=== PATIENT | female | born 1960 | race Caucasian/White ===

== ENCOUNTER 2019-09-03 11:26 | Outpatient (CLI) | payer OTHER, SELFPAY ==
--- NOTE | ~2019-09-03 | CT_ITS ---
EXAMINATION: CT chest wo con DATE: 09/03/2019 11:49 INDICATION: COPD, shortness of breath and cough TECHNIQUE: Computed tomography (CT) of the chest was performed without intravenous contrast. The dose -length product (DLP) was 67.40 mGy-cm. Automated exposure control and iterative reconstruction techn ique were employed. COMPARISON: None FINDINGS: There is mild emphysema. There is an approximately 2.0 x 1.5 cm groundglass nodule of the r ight upper lobe without definite solid component on image 47. Calcified pulmonary nodules and calcifi ed bilateral hilar and mediastinal lymph nodes are consistent with old granulomatous disease. There i s no pleural effusion or pneumothorax. No pathologically enlarged thoracic lymph nodes are identified . The heart size is normal. Punctate calcifications in an otherwise normal spleen likely represent he aled granulomatous disease. There is mild thoracic spondylosis. IMPRESSION: 1. 2 cm groundglass nodule of the right upper lobe which could be infectious or inflammatory however low-grade malignancy can have a similar appearance. Follow-up CT in three months is recommended. 2. Mild emphysema. Reviewed, dictated and finalized at location A. AL ASSISTANT TEACHER IMPRESSION: 1. 2 cm groundglass nodule of the right upper lobe which could be infectious or inflammatory however low-grade malignancy can have a similar appearance. Follo w-up CT in three months is recommended. 2. Mild emphysema.
== END 2019-09-03 11:27 | disposition home or self-care (01) ==
PROVIDERS: PCP Physician Assistant; Visit Provider Physician Assistant
DX: J44.9 Chronic obstructive pulmonary disease, unspecified (principal); R91.1 Solitary pulmonary nodule; J43.9 Emphysema, unspecified
CPT/HCPCS: 71250

== ENCOUNTER 2020-03-12 07:45 | Outpatient (CLI) | payer OTHER, SELFPAY ==
--- NOTE | ~2020-03-12 | CT_ITS ---
EXAMINATION:CT chest wo con DATE: 03/12/2020 08:06 INDICATION: Solitary pulmonary nodule. TECHNIQUE: Computed tomography (CT) of the chest was performed without intravenous contrast. Automate d exposure control and iterative reconstruction technique were employed. The dose-length product (DLP ) was 84.13 mGy-cm. COMPARISON: Chest CT 09/03/2019 FINDINGS: There is mild scarring at the lung apices. There is mild emphysema. There is a 4 mm nodule in right lower lobe without change. Calcified bilateral lung nodules and calcified hilar lymph nodes are consistent with old granulomatous disease. There is a 1.6 cm solid nodule in right upper lobe wit h 5 mm solid component without change. There are a few 2 mm nodules in the lungs. No pleural effusion . There is a 12 mm nodule in right thyroid lobe, likely not clinically significant. The heart size is normal. No pericardial effusion. Calcifications in the spleen are consistent with old granulomatous disease. There is severe mid thoracic spondylosis. There is mild chronic anterior wedging of T7 verte bral body. IMPRESSION: 1. Lung-RADS category 2: Benign appearance or behavior. Continue annual screening with noncontrast lo w-dose chest CT in 12 months. Reviewed, dictated and finalized at location B. IMPRESSION: 1. Lung-RADS category 2: Benign appearance or behavior. Continue annual screeni ng with noncontrast low-dose chest CT in 12 months.
== END 2020-03-12 07:46 | disposition home or self-care (01) ==
LOC: ANHIMG 07:51
PROVIDERS: PCP Physician Assistant; Visit Provider Nurse Practitioner
DX: R91.1 Solitary pulmonary nodule (principal)
CPT/HCPCS: 71250

== ENCOUNTER 2020-05-31 06:54 | Outpatient (NON) | payer OTHER, SELFPAY ==
[2020-05-31 19:54] LABS: SARS-CoV-2 RNA PCR Negative
== END 2020-05-31 06:55 ==
LOC: ANHCOVIDDT 07:13
PROVIDERS: PCP Physician Assistant; Visit Provider Physician Assistant
DX: R68.89 Other general symptoms and signs (principal); Z20.828 Contact with and (suspected) exposure to other viral communicable diseases
CPT/HCPCS: 87635; C9803; U0003

== ENCOUNTER 2020-09-26 11:17 | Outpatient (CLI) | payer OTHER, SELFPAY | END 2020-09-26 11:18 | disposition home or self-care (01) | LOC: ANHCOVIDVC 11:17 | PROVIDERS: PCP Physician Assistant | DX: Z23 Encounter for immunization (principal) | CPT/HCPCS: 0001A; 91300 ==

== ENCOUNTER 2020-10-17 11:16 | Outpatient (CLI) | payer OTHER, SELFPAY | END 2020-10-17 11:17 | disposition home or self-care (01) | LOC: ANHCOVIDVC 11:16 | PROVIDERS: PCP Physician Assistant | DX: Z23 Encounter for immunization (principal) | CPT/HCPCS: 0002A; 91300 ==

== ENCOUNTER 2021-04-11 09:58 | Outpatient (CLI) | payer OTHER, SELFPAY ==
--- NOTE | ~2021-04-11 | CT_ITS ---
EXAMINATION: CT diagnostic chest wo con EXAM DATE: 04/11/2021 10:44 INDICATION: Multiple lung nodules. TECHNIQUE: Spiral CT of the chest without contrast. Axial, coronal and sagittal images of the chest were reviewed. Coronal maximum intensity pixel images of chest reviewed. The dose-length product ( DLP) for this examination was 157.30 mGy-cm. The exposure was tailored according to patient size (au to mA exposure control), and iterative reconstruction (ASIR) was used as additional dose reduction te chnique. Comparison is made to prior examination from 04/12/2020. FINDINGS: There is moderate emphysema. Scattered regions of post infectious residua unchanged. No lafaro spicious lung nodules or opacities. There are no pleural or pericardial effusions. Tracheobronchia l tree is patent. There is no mediastinal, hilar or axillary lymphadenopathy. There is no pneumot horax. Narrow cardiac silhouette from hyperinflated lungs. No evidence of coronary arterial calci fication. Vague region of decreased density within the liver centrally, possible mass. There is mild to moderat e thoracic spondylosis without osteoblastic or osteolytic lesions identified. IMPRESSION: 1. Development of vague hypodensity within the liver centrally suspicious for mass; CT or MRI examin ation with contrast recommended. 2. Emphysema and hyperinflation. I discussed liver finding, recommendation with Shraddha in the office of Dr. Heidi Colunga, BUSINESS EXECUTIVE- at 04/11/2021 13:21 CDT. I provided my phone number for any questions regarding this report which is b eing faxed to their office. Reviewed, dictated and finalized at location B. IMPRESSION: 1. Development of vague hypodensity within the liver centrally suspicious for mass; CT or MRI examination with contrast recommended. 2. Emphysema and hyperinflation. I discussed liver finding, recommendation with Shraddha in the office of Dr. Heidi Colunga, BUSINESS EXECUTIVE-BC at 04/11/2021 13:21 CDT. I provided my phone number for an y questions regarding this report which is being faxed to their office.
== END 2021-04-11 09:59 | disposition home or self-care (01) ==
LOC: ANHIMG 10:03
PROVIDERS: PCP Physician Assistant; Visit Provider Nurse Practitioner
DX: R91.8 Other nonspecific abnormal finding of lung field (principal); J43.9 Emphysema, unspecified
CPT/HCPCS: 71250

== ENCOUNTER 2021-05-29 12:32 | Outpatient (CLI) | payer OTHER, SELFPAY ==
--- NOTE | ~2021-05-29 | CT_ITS ---
EXAMINATION: CT abdomen pelvis w con INDICATION: Liver mass TECHNIQUE: Computed tomographic images of the abdomen and pelvis were obtained after the administrati on of 100 cc of Omnipaque 350 intravenous contrast. The dose-length product (DLP) was 183.93 mGy-cm. Automated exposure control and iterative reconstruction technique were employed. COMPARISON: 04/11/2021, 03/12/2020, 09/03/2019 FINDINGS: Minimal dependent atelectasis is present in the lung bases. The heart size is normal. There is a 2.8 x 2.4 cm mass in liver segment Shaheed which appears to demonstrate interrupted peripheral nodu lar enhancement. The mass is not well seen on prior comparison examination from last year. Punctate c alcifications in an otherwise normal spleen likely represent healed granulomatous disease. The pancre as, gallbladder, and adrenal glands are normal. The kidneys are unremarkable. No pathologically enlar ged abdominal or pelvic lymph nodes are identified. There is calcified atherosclerosis of the aorta a nd many of the other arteries. There is mild lumbar spondylosis. IMPRESSION: 1. Probable hemangioma of the liver. Follow-up CT or MRI without and with contrast in six months is r ecommended. Reviewed, dictated and finalized at location B. OLE MANAGER IMPRESSION: 1. Probable hemangioma of the liver. Follow-up CT or MRI without and with contr ast in six months is recommended.
[2021-05-29 13:20] LABS: Estimated Glomerular Filt Rate > 60
== END 2021-05-29 12:33 | disposition home or self-care (01) ==
PROVIDERS: PCP Physician Assistant; Visit Provider Nurse Practitioner
DX: R16.0 Hepatomegaly, not elsewhere classified (principal)
CPT/HCPCS: 74177; Q9967

== ENCOUNTER 2021-10-16 10:40 | Emergency (ER) | payer OTHER, SELFPAY ==
--- NOTE | ~2021-10-16 | XR_ITS ---
XR lumbar spine 2-3V DATE: 10/16/2021 11:38 INDICATION: Low back pain, radiating to left leg. No injury. TECHNIQUE: AP, lateral, coned lateral lumbosacral views COMPARISON: 04/02/2016 lumbar spine FINDINGS: There is a transitional lumbosacral vertebra, which may be a source of chronic low back ryanne n. No fracture or bone destruction is evident. The included lower thoracic and lumbar pedicles appear in tact. Lumbar interspaces appear well preserved. There are mild degenerative spurring of the lower thoracic and lumbar spine. The sacroiliac joints are intact. IMPRESSION: Transitional lumbosacral vertebra Mild degenerative spurring of the lumbar spine Reviewed, dictated and finalized at location A.
[2021-10-16 10:52] VITALS: BP 146/75; PULSE 103; RESP 18; TEMP 37; O2SAT 99
--- NOTE | 2021-10-16 11:56 | ED.GENADULT ---
HPI - General Adult General Chief complaint: Urogenital-Female Stated complaint: Lower Back Pain Source: patient Mode of arrival: ambulatory Limitations: no limitations History of Present Illness HPI narrative: Patient presents for evaluation of low back pain for the past five days. She thinks she has a UTI. She states her urine is concentrated in appearance and has a foul odor. She has urinary frequency and is beginning to experience mild dysuria. She states she has experienced similar symptoms in the past with UTI. She denies any fever, chills, nausea, vomiting or abdominal pain. She states she also has additional low back pain with radiation into posterior aspect of the LLE. This pain has been present for many months. She cannot remember sustaining an injury and cannot identify any precipitating event. Pain is rated 8/10 in severity. She denies any saddle anesthesia. She denies paresthesias whatsoever. No bladder or bowel incontinence. She has tried ASA without much improvement in her symptoms. Related Data Home Medications Medication Instructions Recorded Confirmed duloxetine 60 mg PO DAILY 06/15/19 10/16/21 aripiprazole 2 mg PO DAILY 10/16/21 10/16/21 budesonide-formoterol [Symbicort] 2 inh INHALATION DAILY 10/16/21 10/16/21 Allergies Allergy/AdvReac Type Severity Reaction Status Date / Time No Known Allergies Allergy Verified 10/16/21 11:06 Review of Systems Review of Systems: CONSTITUTIONAL: Denies fever, chills, or sweats. EYES: Denies visual changes, redness, or discharge. ENT: Denies rhinorrhea, congestion, sore throat, or otalgia. CARDIOVASCULAR: Denies chest pain, palpitations, or edema. RESPIRATORY: Denies cough or dyspnea. GASTROINTESTINAL: Denies abdominal pain, nausea, vomiting, or diarrhea. GENITOURINARY: Reports urinary frequency, concentrated appearance, foul odor, and mild dysuria. SKIN: Denies rash or itching. MUSCULOSKELETAL: Reports low back pain. Denies joint pain, or myalgia. NEUROLOGIC: Denies headache, numbness, dizziness, or weakness. PSYCHIATRIC: Denies anxiety or depression. [facility] Past Medical History Medical History (Updated 10/16/21 @ 12:09 by Herson Hudson, MACHINE RIGGER, ) Depression Surgical History Surgical History No pertinent past surgical history Family History Family History Mother Family history non-contributory Social History Social History Smoking packs per day: 0.5 Smoking cigarettes per day: 10.0 Smoking status: Current every day smoker Substance use: never Living arrangements: alone Gender identity (if verbalized by the patient): Female Spiritual care concerns: No Exam Narrative: GENERAL: Well-appearing, well-nourished, and in no acute distress. HEAD: Normocephalic, atraumatic. EYES: PERRLA and EOMI. ENT: Nares clear, no rhinorrhea or epistaxis. Mucous membranes moist. Oropharynx without tonsillar hypertrophy exudate or other lesions. Bilateral TMs pearly islas nonbulging NECK: Supple. No adenopathy or masses. No carotid bruits or JVD CHEST: Clear to auscultation. No respiratory distress. No wheezes rales or rhonchi HEART: Regular rate and rhythm. No murmur heard. Normal peripheral pulses. ABDOMEN: Soft, nontender, nondistended, normal active bowel sounds. BACK: Mild tenderness noted diffusely in lower back without significant midline bony spinal tenderness EXTREMITIES: Normal range of motion. No edema. SKIN: Warm, dry, no rash. NEURO: No focal deficits. Alert and oriented x3. PSYCH: Normal mood and affect. Course Course Emergency Course: This is a 61 yr old female here today with reports of low back pain. Her urine did not have evidence of infectious criteria. Her x ray of lumbar spine revealed transitional lumbosacral vertebra and DDD. Exam is consis
== END 2021-10-16 12:12 | disposition home or self-care (01) ==
PROVIDERS: Emergency Provider Nurse Practitioner; PCP Physician Assistant
DX: M54.32 Sciatica, left side (principal); M51.36 Other intervertebral disc degeneration, lumbar region; F17.210 Nicotine dependence, cigarettes, uncomplicated
CPT/HCPCS: 72100; 81003; 99213; G0463

== ENCOUNTER 2022-06-16 09:38 | Inpatient (IN) | payer OTHER, SELFPAY ==
[2022-06-16] VITALS (15 sets, daily range): BP systolic 110–166; BP diastolic 74–164; PULSE 97–115; RESP 12–32; TEMP 36.4–36.6; O2SAT 94–100; BMI 11.9
--- NOTE | ~2022-06-16 | XR_ITS ---
XR chest 2V 06/16/2022 10:42 Indication: Shortness of breath. History of COPD. Procedure: 2 view chest Comparison: 11/03/2017 Findings: Heart size normal. There are bilateral calcified granulomas in the lungs. No focal air spac e disease, pulmonary edema, pleural effusion or suspected pneumothorax. The lungs are hyperinflated w hich is consistent with, but not diagnostic of chronic obstructive pulmonary disease. Impression: 1: No acute cardiopulmonary disease. Reviewed, dictated and finalized at location A. INSTRUMENT REPAIRER Impression: 1: No acute cardiopulmonary disease.
--- NOTE | 2022-06-16 09:43 | ECG_ITS ---
Measurements Intervals [place] Rate: 110 P: 81 OR: 144 QRS: 36 QRSD: 94 T: 77 QT: 328 QTc: 444 Interpretive Statements SINUS TACHYCARDIA RIGHT ATRIAL ENLARGEMENT POSSIBLE LEFT ATRIAL ENLARGEMENT CONSIDER ANTERIOR INFARCT, AGE INDETERMINATE DELAYED PRECORDIAL R/S TRANSITION BASELINE ARTIFACT- I, II, III, AVR, AVL, AVF, V1-V6 ABNORMAL ECG NO PREVIOUS ECG AVAILABLE FOR COMPARISON Electronically Signed On 06-16-2022 10:57:37 DRY KILN LOADER by Herve Mae D.O.
--- NOTE | 2022-06-16 09:53 | ED.SOB ---
HPI - SOB/Dyspnea General Chief Complaint: Shortness of Breath/Dyspnea <Heidi Leavitt PA-C - Last Filed: 06/16/22 14:28> Stated Complaint: sob, copd <BISMARK Rodriguez Last Filed: 06/16/22 14:28> Time Seen by Provider: 06/16/22 09:44 <BISMARK Rodriguez Last Filed: 06/16/22 14:28> Source: patient <BISMARK Rodriguez Last Filed: 06/16/22 14:28> Mode of arrival: ambulatory <BISMARK Rodriguez Last Filed: 06/16/22 14:28> Limitations: no limitations <BISMARK Rodriguez Last Filed: 06/16/22 14:28> History of Present Illness HPI Narrative: This is a 61 year old female that presents to the ER for shortness of breath ongoing over the last couple of days. Associated with congestion, sore throat and nonproductive cough. Reports she is currently out of her Albuterol inhaler. Has history of COPD. She is currently a smoker, although she has been too short of breath to smoke the last couple of days. Reports sharp chest pain. Denies fever. <BISMARK Rodriguez Last Filed: 06/16/22 14:28> Related Data Home Medications: Home Medications Medication Instructions Recorded Confirmed duloxetine 60 mg capsule,delayed 60 mg PO BID 06/15/19 06/16/22 release budesonide-formoterol HFA 160 2 inh inhalation DAILY 10/16/21 06/16/22 mcg-4.5 mcg/actuation aerosol inhaler (Symbicort) albuterol sulfate 90 mcg/actuation 2 puff inhalation BID 06/16/22 06/16/22 aerosol inhaler <BISMARK Rodriguez Last Filed: 06/16/22 14:28> Allergies/Adverse Reactions: Allergies Allergy/AdvReac Type Severity Reaction Status Date / Time No Known Allergies Allergy Verified 10/16/21 11:06 <BISMARK Rodriguez Last Filed: 06/16/22 14:28> Review of Systems Review of Systems: CONSTITUTIONAL: Denies fever ENT: Reports congestion, sore throat CARDIOVASCULAR: Reports chest pain. Denies edema. RESPIRATORY: Reports cough and dyspnea. <Heidi Leavitt PA-C - Last Filed: 06/16/22 14:28> All systems reviewed & are unremarkable except as noted in HPI and below <Heidi Leavitt PA-C - Last Filed: 06/16/22 14:28> [facility] Past Medical History Medical History: Medical History (Updated 06/16/22 @ 14:19 by Heidi Leavitt PA-C) Depression History of COPD <Heidi Leavitt PA-C - Last Filed: 06/16/22 14:28> Surgical History Surgical History: Surgical History No pertinent past surgical history <Heidi Leavitt PA-C - Last Filed: 06/16/22 14:28> Family History Family History: Family History (Updated 06/16/22 @ 15:34 by TEMO Castellon) Mother Family history non-contributory Father Smoker Bone cancer <Heidi Leavitt PA-C - Last Filed: 06/16/22 14:28> Social History Social History: Social History Smoking packs per day: 0.5 Smoking cigarettes per day: 10.0 Years smoked: 40 Smoking pack-years: 20.00 Smoking status: Current every day smoker Substance use: never Lack of Transportation: No Lack of Food: Never True Current Housing: I Have Housing Concerned About Future Housing: No Difficulty Paying Gas/Electric Bills: No Difficulty Paying for Meds: No Currently Unemployed: No Education: High School Diploma/GED Difficulty w/ Childcare or Family Care: No Gender identity (if verbalized by the patient): Female Spiritual care concerns: No <Heidi Leavitt PA-C - Last Filed: 06/16/22 14:28> Exam Narrative: GENERAL: Well-appearing, thin, and in mild respiratory distress. HEAD: Normocephalic, atraumatic. EYES: EOMI. ENT: Nares clear, no rhinorrhea or epistaxis. Mucous membranes moist. Oropharynx without tonsillar hypertrophy, she does have exudates, no other lesions. Bilateral TMs pearly islas non-bulging NECK: Supple. No adenopathy or masses. CHEST: Tachypneic, decreased br
[2022-06-16 10:00] LABS: Basophils Absolute Auto 0.1 K/mm3 (0.0-0.1); Basophils Percent Auto 0.8 % (0.2-1.2); Eosinophils Absolute Auto 0.1 K/mm3 (0-0.3); Eosinophils Percent Auto 2.1 % (0-4.4); Hematocrit 44.6 % (37.0-47.0); Hemoglobin 15.1 g/dL (12.0-15.0); Immature Granulocyte Absolute 0.02 K/mm3 (0.00-0.031); Immature Granulocyte Percent A 0.3 % (0-0.5); Lymphocytes Absolute Auto 1.59 K/mm3 (0.9-3.2); Mean Corpuscular HGB Conc 33.9 g/dl (32-36); Mean Corpuscular Hemoglobin 31.7 pg (26-34); Mean Corpuscular Volume 93.5 fl (80-100); Mean Platelet Volume 9.2 fl (7.4-10.4); Monocytes Absolute Auto 0.8 K/mm3 (0.1-0.6); Monocytes Percent Auto 12.4 % (2.6-8.5); Neutrophils Percent Auto 60.4 % (45.5-73.1); Platelet Count Result 287 k/mm3 (150-375); Red Blood Count 4.77 M/mm3 (4.2-5.4); Red Cell Distribution Width 12.5 % (11.5-14.5); White Blood Count 6.6 K/mm3 (4.5-10.0)
[2022-06-16] MEDS: ALBUTEROL SULFATE NEB 2.5 MG/3 ML INH 5 MG INHALATION (10:08)
[2022-06-16] MEDS: IPRATROPIUM BR 0.02% INH SOLN 0.5 MG/2.5 ML VIAL INHALATION (10:08)
[2022-06-16] MEDS: methylPREDNISolone SOD SUCC 125 MG VIAL IV PUSH (10:11)
[2022-06-16] MEDS: SODIUM CHLORIDE 0.9% IV 500 ML 999 ML IV CONT (10:11)
[2022-06-16 10:27] LABS: Alveolar/Arterial O2 Gradient 21.7 mmHg; Base Excess ABG -2.4 mEq/l (+/-2.0); Carboxyhemoglobin 0.8 % THb (0-2.0); Fractional Inspired Oxygen 21 %; HCO3 ABG 24.3 mEq/l (22.0-26.0); Methemoglobin ABG 0.2 %THb (0-1.5); Oxygen Saturation ABG 92.4 % (95.0-100.0); PCO2 ABG 48.9 mmHg (35.0-45.0); PO2 ABG 69.5 mmHg (80.0-100.0); PO2 FiO2 Ratio Arterial Blood 3.31 %; Total Hemoglobin 14.7 g/dL (12.0-18.0); pH ABG 7.314 (7.350-7.450)
[2022-06-16 10:28] LABS: Device ROOM AIR; Modified Allen's Test Pass; Site Drawn RIGHT BRACHIAL
[2022-06-16] MEDS: ALBUTEROL SULFATE NEB 2.5 MG/3 ML INH 15 MG INHALATION (10:59)
[2022-06-16] MEDS: IPRATROPIUM BR 0.02% INH SOLN 0.5 MG/2.5 ML VIAL 1.5 MG INHALATION (10:59)
[2022-06-16 11:19] LABS: Influenza A QL RT-PCR Positive (Negative); Influenza B QL RT-PCR Negative (Negative); RSV RNA, RT-PCR Negative (Negative); SARS-CoV-2 RNA PCR Negative
[2022-06-16 11:43] LABS: INR 0.9
[2022-06-16 11:44] LABS: Partial Thromboplastin Time 35.5 SECONDS (22.3-36.8)
[2022-06-16 11:45] LABS: Strep Group A RT-PCR Negative (Negative)
[2022-06-16] MEDS: LORazepam INJ (*CRX) 2 MG/ML VIAL 0.5 MG IV PUSH (11:46)
[2022-06-16 12:04] LABS: Monoscreen Negative (Negative); Negative Monotest Control Negative (Negative); Positive Monotest Control Positive (Positive)
[2022-06-16 13:00] LABS: Alanine Aminotransferase 38 U/L (6-35); Albumin Level 4.8 g/dL (3.5-5.1); Alkaline Phosphatase 72 U/L (38-126); Anion Gap 14 mmol/L (8-16); Aspartate Amino Transferase 71 U/L (14-36); Bilirubin,Total 0.5 mg/dL (0.2-1.3); Blood Urea Nitrogen 27 mg/dL (7-17); Calcium 8.8 mg/dL (8.4-10.2); Carbon Dioxide 24 mmol/L (22-30); Chloride 102 mmol/L (98-107); Estimated Glomerular Filt Rate > 60; Glucose 126 mg/dL (65-110); Potassium 4.3 mmol/L (3.4-5.0); Sodium 140 mmol/L (137-145)
[2022-06-16 13:12] LABS: Troponin I < 0.012 ng/mL (0.000-0.034)
[2022-06-16] MEDS: OSELTAMIVIR PHOSPHATE 75 MG CAPSULE PO ×2 (13:57→20:14)
--- NOTE | 2022-06-16 15:15 | ADMGEN ---
This patient, Nasrin Mercedes, was admitted to IMU Room 213-01 at 1510. Patient/family oriented to hospital policies and general routines including ID bracelet, bed and alarms, visiting hours, pain management, procedures, bathroom and other care routines, personal items, smoking policy, room service/diet, and visiting hours. Information on how to activate the Rapid Response Team has been discussed. Patient/Family are encouraged to report perceived risks to care and to ask questions if they do not understand what they are told or what they should do.
--- NOTE | 2022-06-16 19:44 | PM.IMHP ---
H&P: HPI History of Present Illness Date/Time: 06/16/22 19:44 Chief Complaint: Shortness of breath Narrative: This is a 61-year-old female patient who has a history of COPD. She came to the emergency room with complaints of shortness of breath for the last couple days. She said it started out as nasal congestion and a sore throat. She also had a nonproductive cough. She states that she uses her inhalers at home but then she ran out of her albuterol. She is currently smoking but has not had a cigarette since this past . The patient was using accessory muscles in the emergency room and she was placed on a BiPAP machine. When I assessed her in IMU she had taken the BiPAP off and was on room air and was using accessory muscles again. She then was placed on oxygen at 2 L per nasal cannula and continuous pulse ox. The patient was found to be positive for influenza A. The patient was started on Tamiflu and given Solu-Medrol and nebulizer treatments in the emergency room. Her chest x-ray was read as no acute cardiopulmonary disease. The patient initially was admitted to observation status and then changed to inpatient status. Date of service is 06/16/2022. Review of Systems Review of Systems: see hpi All systems reviewed & are unremarkable except as noted in HPI and below Constitutional: Constitutional: Reports as per HPI and Reports no additional constitutional complaints Eyes: Eyes: Reports as per HPI and Reports no additional eye complaints ENT: Reports system reviewed and no additional complaints, except as documented and Reports Normal hearing present Cardiovascular: Cardiovascular: Reports no additional cardiovascular complaints Respiratory: Respiratory: Reports no additional respiratory complaints and Reports no additional respiratory complaints Gastrointestinal: Gastrointestinal: Reports as per HPI and Reports no additional gastrointestinal complaints Musculoskeletal: Musculoskeletal: Reports no additional musculoskeletal complaints Integumentary/Breasts: Skin/Breast: Reports system reviewed and no additional complaints, except as docu and Reports as per HPI Neurologic: Reports system reviewed and no additional complaints, except as documented, Reports as per HPI and Reports Normal hearing present Psychiatric: Psychiatric: Reports no additional psychiatric complaints and Reports as per HPI Endocrine: Endocrine: Reports no additional endocrine complaints Hematologic/Lymphatic: Hematologic/Lymphatic: Reports no additional hematologic/lymphatic complaints Allergic/Immunologic: Allergic/Immunologic: Reports no additional allergic/immunologic complaints [facility] Past Medical History Medical History (Updated 06/16/22 @ 21:49 by Maryann Shah NP) Depression History of COPD Tobacco abuse Surgical History Surgical History No pertinent past surgical history Family History Family History Mother Family history non-contributory Father Smoker Bone cancer Social History Social History (Updated 06/16/22 @ 21:34 by Maryann Shah NP) Social History: The patient had been smoking at least 10 cigarettes a day. She stated she has not had a cigarette since this past . She has 2 children. 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 The patient is but still remains friends with her ex-. she denies any alcohol marijuana or illicit drugs. She has no durable power compliance attorney for healthcare. Code status full code Smoking packs per day: 0.5 Smoking cigarettes per day: 10.0 Years smoked: 40 Smoking pack-years: 20.00 Smoking status: Current every day smoker Substance use: never Lack of Transportation: No Lack of Food: Never True Current Housing: I Have Housing Concerned About Future Housing: No Difficulty Paying Gas/Electric [employer]
[2022-06-16] MEDS: methylPREDNISolone SOD SUCC 125 MG VIAL 60 MG IV PUSH (23:12)
[2022-06-16] MEDS: DULoxetine HCL 60 MG CAPSULE.DR PO (23:12)
[2022-06-17] VITALS (14 sets, daily range): BP systolic 127–134; BP diastolic 64–89; PULSE 82–109; RESP 18–22; TEMP 36.5–36.8; O2SAT 93–100; BMI 15.7
[2022-06-17] MEDS: OSELTAMIVIR PHOSPHATE 30 MG CAPSULE PO ×3 (00:11→21:33)
[2022-06-17] MEDS: ALBUTEROL SULFATE NEB 2.5 MG/3 ML INH INHALATION ×4 (01:35→20:47)
[2022-06-17] MEDS: IPRATROPIUM BR 0.02% INH SOLN 0.5 MG/2.5 ML VIAL INHALATION ×4 (01:35→20:47)
[2022-06-17 04:54] LABS: Basophils Percent Auto 0.2 % (0.2-1.2); Hematocrit 40.4 % (37.0-47.0); Hemoglobin 13.6 g/dL (12.0-15.0); Immature Granulocyte Absolute 0.02 K/mm3 (0.00-0.031); Immature Granulocyte Percent A 0.4 % (0-0.5); Lymphocytes Percent Auto 10.1 % (18.3-44.2); Mean Corpuscular HGB Conc 33.7 g/dl (32-36); Mean Corpuscular Hemoglobin 31.6 pg (26-34); Mean Corpuscular Volume 93.7 fl (80-100); Mean Platelet Volume 8.9 fl (7.4-10.4); Monocytes Absolute Auto 0.2 K/mm3 (0.1-0.6); Monocytes Percent Auto 4.9 % (2.6-8.5); Neutrophils Absolute Auto 4.2 K/mm3 (1.3-6.7); Neutrophils Percent Auto 84.4 % (45.5-73.1); Platelet Count Result 273 k/mm3 (150-375); Red Blood Count 4.31 M/mm3 (4.2-5.4); Red Cell Distribution Width 12.4 % (11.5-14.5); White Blood Count 4.9 K/mm3 (4.5-10.0)
[2022-06-17 05:11] LABS: Lactic Acid Reflex 0.8 mmol/L (0.7-2.0)
[2022-06-17 05:14] LABS: Alanine Aminotransferase 41 U/L (6-35); Albumin Level 4.8 g/dL (3.5-5.1); Alkaline Phosphatase 74 U/L (38-126); Anion Gap 10 mmol/L (8-16); Aspartate Amino Transferase 65 U/L (14-36); Bilirubin,Total 0.3 mg/dL (0.2-1.3); Blood Urea Nitrogen 31 mg/dL (7-17); Carbon Dioxide 28 mmol/L (22-30); Chloride 101 mmol/L (98-107); Estimated CRCL calculation 67 ml/min; Estimated Glomerular Filt Rate > 60; Glucose 142 mg/dL (65-110); Magnesium 2.1 mg/dL (1.6-2.3); Potassium 4.7 mmol/L (3.4-5.0); Sodium 139 mmol/L (137-145)
[2022-06-17] MEDS: methylPREDNISolone SOD SUCC 125 MG VIAL 60 MG IV PUSH (05:22)
[2022-06-17] MEDS: ENOXAPARIN 40 MG/0.4 ML SYRINGE SUB-Q (08:48)
[2022-06-17] MEDS: DULoxetine HCL 60 MG CAPSULE.DR PO ×2 (08:48→21:33)
[2022-06-17] MEDS: NICOTINE (*PBKC) 14 MG PATCH 1 PATCH TRANSDERM (08:49)
[2022-06-17] MEDS: FLUTICASONE/SALMETEROL 115-21 MCG INHALER 1 PUFF 2 PUFF INHALATION ×2 (09:01→20:47)
--- NOTE | 2022-06-17 11:41 | PM.IMPN ---
Progress Note: A&P Assessment and Plan (1) Influenza A: Code(s): J10.1 - Influenza due to other identified influenza virus with other respiratory manifestations Status: Acute Assessment and Plan: -continue with Tamiflu. (2) COPD (chronic obstructive pulmonary disease): Code(s): J44.9 - Chronic obstructive pulmonary disease, unspecified Status: Acute Assessment and Plan: -continue with Symbicort -continue with DuoNebs - DC Solu-Medrol. Start on oral prednisone O2 as required to keep O2 saturations above 90% (3) Anxiety: Code(s): F41.9 - Anxiety disorder, unspecified Status: Acute Assessment and Plan: -continue with duloxetine (4) Depression: Code(s): F32.A - Depression, unspecified Status: Acute Assessment and Plan: -continue duloxetine (5) Tobacco abuse: Code(s): Z72.0 - Tobacco use Status: Acute Assessment and Plan: - counseled on smoking cessation for approximately 5 minutes. -continue with nicotine patch Subjective Date/time seen: 06/17/22 11:41 breathing little better. Still has wheezing Review of Systems Review of Systems: see hpi All systems reviewed & are unremarkable except as noted in HPI and below Constitutional: Constitutional: Reports as per HPI and Reports no additional constitutional complaints Eyes: Eyes: Reports as per HPI and Reports no additional eye complaints ENT: Reports system reviewed and no additional complaints, except as documented and Reports Normal hearing present Cardiovascular: Cardiovascular: Reports no additional cardiovascular complaints Respiratory: Respiratory: Reports no additional respiratory complaints and Reports no additional respiratory complaints Gastrointestinal: Gastrointestinal: Reports as per HPI and Reports no additional gastrointestinal complaints Musculoskeletal: Musculoskeletal: Reports no additional musculoskeletal complaints Integumentary/Breasts: Skin/Breast: Reports system reviewed and no additional complaints, except as docu and Reports as per HPI Neurologic: Reports system reviewed and no additional complaints, except as documented, Reports as per HPI and Reports Normal hearing present Psychiatric: Psychiatric: Reports no additional psychiatric complaints and Reports as per HPI Endocrine: Endocrine: Reports no additional endocrine complaints Hematologic/Lymphatic: Hematologic/Lymphatic: Reports no additional hematologic/lymphatic complaints Allergic/Immunologic: Allergic/Immunologic: Reports no additional allergic/immunologic complaints Exam Const: General: cooperative, comfortable, well developed, alert, awake and Physically active Nutritional Appearance: average body habitus, well nourished and thin Orientation/consciousness: oriented to person, oriented to place, oriented to time and patient oriented x3 Limitations: no limitations HENMT: Head: normal to inspection, No palpable skull fracture present, normocephalic and atraumatic Ears: hearing grossly normal bilaterally and external ears normal Face/Nose/Sinus: Normal external nose present and Normal nares present Eyes: General: appearance normal, both eyes and all related structures Alignment and Position: alignment normal Periorbital: periorbital findings normal Eyelids: eyelids normal Sclera: sclerae normal Pupils: Equal, round and reactive pupils present EOM: EOMs intact bilaterally Neck: Neck: normal visual inspection, full ROM, no lymphadenopathy, trachea midline and supple Chest: Chest palpation & inspection: normal inspection of the chest Resp: Effort & Inspection: normal respiratory effort Auscultation: wheezes and diminished lung sounds Cardio: Palpation: normal PMI Rate: regular rate Rhythm: regular rhythm Heart sounds: S1 normal heart sound present and S2 normal heart sound present Peripheral pulses: Peripheral pulses 2+ throughout GI: Inspection: normal to inspection
--- NOTE | 2022-06-17 22:40 | PC.NURSE ---
This patient, Nasrin Mercedes, was transferred to [ 243] on 06/17/22 at 2240. Personal belongings sent with patient. Report given to [Latonya sow ]. Appropriate documentation sent with patient.
[2022-06-18] VITALS (12 sets, daily range): BP systolic 115–127; BP diastolic 69–85; PULSE 62–108; RESP 16–20; TEMP 36.3–37.1; O2SAT 94–97
[2022-06-18] MEDS: ALBUTEROL SULFATE NEB 2.5 MG/3 ML INH INHALATION ×4 (01:41→21:30)
[2022-06-18] MEDS: IPRATROPIUM BR 0.02% INH SOLN 0.5 MG/2.5 ML VIAL INHALATION ×4 (01:42→21:30)
[2022-06-18] MEDS: FLUTICASONE/SALMETEROL 115-21 MCG INHALER 1 PUFF 2 PUFF INHALATION (08:49)
[2022-06-18] MEDS: predniSONE 20 MG TABLET 40 MG PO (09:44)
[2022-06-18] MEDS: ENOXAPARIN 40 MG/0.4 ML SYRINGE SUB-Q (09:45)
[2022-06-18] MEDS: OSELTAMIVIR PHOSPHATE 30 MG CAPSULE PO ×2 (09:45→20:55)
[2022-06-18] MEDS: DULoxetine HCL 60 MG CAPSULE.DR PO ×2 (09:45→20:55)
--- NOTE | 2022-06-18 11:58 | PM.IMPN ---
Progress Note: A&P Assessment and Plan (1) Influenza A: Code(s): J10.1 - Influenza due to other identified influenza virus with other respiratory manifestations Status: Acute Assessment and Plan: -continue with Tamiflu. (2) COPD (chronic obstructive pulmonary disease): Code(s): J44.9 - Chronic obstructive pulmonary disease, unspecified Status: Acute Assessment and Plan: -continue with Symbicort -continue with DuoNebs - DC Solu-Medrol. Start on oral prednisone O2 as required to keep O2 saturations above 90% (3) Anxiety: Code(s): F41.9 - Anxiety disorder, unspecified Status: Acute Assessment and Plan: -continue with duloxetine (4) Depression: Code(s): F32.A - Depression, unspecified Status: Acute Assessment and Plan: -continue duloxetine (5) Tobacco abuse: Code(s): Z72.0 - Tobacco use Status: Acute Assessment and Plan: - counseled on smoking cessation for approximately 5 minutes. -continue with nicotine patch Subjective Date/time seen: 06/18/22 11:58 No new complaints Exam Const: General: cooperative, healthy appearing, comfortable, no acute distress, well developed, alert, awake, Physically active, average body habitus, well nourished and thin Nutritional Appearance: average body habitus, well nourished and thin Orientation/consciousness: oriented to person, oriented to place, oriented to time and patient oriented x3 Limitations: no limitations HENMT: Head: normal to inspection, No palpable skull fracture present, normocephalic and atraumatic Ears: hearing grossly normal bilaterally and external ears normal Face/Nose/Sinus: Normal external nose present and Normal nares present Eyes: General: appearance normal, both eyes and all related structures Alignment and Position: alignment normal Periorbital: periorbital findings normal Eyelids: eyelids normal Sclera: sclerae normal Pupils: Equal, round and reactive pupils present EOM: EOMs intact bilaterally Neck: Neck: normal visual inspection, full ROM, no lymphadenopathy, trachea midline and supple Chest: Chest palpation & inspection: normal inspection of the chest Resp: Effort & Inspection: normal respiratory effort Auscultation: wheezes and diminished lung sounds Cardio: Palpation: normal PMI Rate: regular rate Rhythm: regular rhythm Heart sounds: S1 normal heart sound present and S2 normal heart sound present Peripheral pulses: Peripheral pulses 2+ throughout GI: Inspection: normal to inspection Auscultation: normal bowel sounds Rectal Exam: deferred Back/Spine/Pelvis: Cervical Spine: cervical ROM normal Skin: General skin exam: normal color Lesions: no lesions Rashes: no rashes Trauma: no lacerations or abrasions Wounds: no wounds Hair: normal Nails: normal Neuro: General: oriented to person, oriented to place, oriented to time and patient oriented x3 Cranial nerves: Yes Equal, round and reactive pupils present and Yes Normal hearing present Cognition (Neuro): normal cognition Speech: normal speech Motor exam (neuro): 5/5 motor strength present throughout Sensory Exam: normal sensation Extrem: General: normal to inspection Right upper extremity: normal to inspection and shoulder/upper arm Left upper extremity: normal to inspection and shoulder/upper arm Right lower extremity: normal to inspection Left lower extremity: normal to inspection Psych: Appearance: grossly normal Mental Status: mental status grossly normal Speech and movement: Normal speech and movement present Affect: normal affect Attitude: cooperative Thought process: Normal thought process present Insight: Fair insight present (Psych) Judgement: Fair judgement present (Psych) Objective Data Vital Signs Vital Signs: Vital Signs - 24 hr 06/17/22 12:30 06/17/22 15:55 06/17/22 16:04 Temperature Pulse Rate 100 89 Respiratory Rate 22 H 22 H Blood Pressure Puls
--- NOTE | 2022-06-18 14:02 | PC.NURSE ---
On 06/18/22, the student, [Karen Cespedes], provided care and completed [facility] documentation on this patient. I have reviewed the student's documentation and agree with the findings.
[2022-06-19] VITALS (10 sets, daily range): BP systolic 109–131; BP diastolic 51–79; PULSE 75–118; RESP 16–20; TEMP 36.6–37.1; O2SAT 94–97
[2022-06-19] MEDS: IPRATROPIUM BR 0.02% INH SOLN 0.5 MG/2.5 ML VIAL INHALATION ×2 (01:57→07:44)
[2022-06-19] MEDS: ALBUTEROL SULFATE NEB 2.5 MG/3 ML INH INHALATION ×2 (01:57→07:44)
--- NOTE | 2022-06-19 02:01 | PCRCNOTE ---
Window of time for administration has passed. See next scheduled administration.
[2022-06-19] MEDS: DULoxetine HCL 60 MG CAPSULE.DR PO (08:13)
[2022-06-19] MEDS: OSELTAMIVIR PHOSPHATE 30 MG CAPSULE PO (08:13)
[2022-06-19] MEDS: predniSONE 20 MG TABLET 40 MG PO (08:13)
[2022-06-19] MEDS: ENOXAPARIN 40 MG/0.4 ML SYRINGE SUB-Q (08:13)
--- NOTE | 2022-06-19 10:58 | PM.DS ---
DS: Admitting Diagnosis Discharge Date June 19, 2022 Admitting Diagnosis COPD and influenza DS: Discharge Diagnosis Discharge Diagnosis (1) Influenza A: Code(s): J10.1 - Influenza due to other identified influenza virus with other respiratory manifestations Status: Acute Assessment and Plan: -continue with Tamiflu. (2) COPD (chronic obstructive pulmonary disease): Code(s): J44.9 - Chronic obstructive pulmonary disease, unspecified Status: Acute Assessment and Plan: -continue with Symbicort -continue with DuoNebs - DC Solu-Medrol. Start on oral prednisone O2 as required to keep O2 saturations above 90% (3) Anxiety: Code(s): F41.9 - Anxiety disorder, unspecified Status: Acute Assessment and Plan: -continue with duloxetine (4) Depression: Code(s): F32.A - Depression, unspecified Status: Acute Assessment and Plan: -continue duloxetine (5) Tobacco abuse: Code(s): Z72.0 - Tobacco use Status: Acute Assessment and Plan: - counseled on smoking cessation for approximately 5 minutes. -continue with nicotine patch DS: Summary Hospital Course Hospital Course: patient is 61-year-old smoking female came in with some shortness of breath. She was found to have influenza. No pneumonia noted on chest x-ray. She did have some wheezing and was admitted for COPD exacerbation secondary to viral illness. She has not required any oxygen. We will have her evaluated for home O2. She has been in the hospital for 3 days is able to ambulate she does little short of breath. She feels comfortable going home. Will continue prednisone and also continue Tamiflu. Time Spent with Patient Time attestation: Total time spent providing and/or coordinating discharge services: Exam Const: General: cooperative, healthy appearing, comfortable, no acute distress, well developed, alert, awake, Physically active, average body habitus, well nourished and thin Nutritional Appearance: average body habitus, well nourished and thin Orientation/consciousness: oriented to person, oriented to place, oriented to time and patient oriented x3 Limitations: no limitations HENMT: Head: normal to inspection, No palpable skull fracture present, normocephalic and atraumatic Ears: hearing grossly normal bilaterally and external ears normal Face/Nose/Sinus: Normal external nose present and Normal nares present Eyes: General: appearance normal, both eyes and all related structures Alignment and Position: alignment normal Periorbital: periorbital findings normal Eyelids: eyelids normal Sclera: sclerae normal Pupils: Equal, round and reactive pupils present EOM: EOMs intact bilaterally Neck: Neck: normal visual inspection, full ROM, no lymphadenopathy, trachea midline and supple Chest: Chest palpation & inspection: normal inspection of the chest Resp: Effort & Inspection: normal respiratory effort Auscultation: wheezes and diminished lung sounds Cardio: Palpation: normal PMI Rate: regular rate Rhythm: regular rhythm Heart sounds: S1 normal heart sound present and S2 normal heart sound present Peripheral pulses: Peripheral pulses 2+ throughout GI: Inspection: normal to inspection Auscultation: normal bowel sounds Rectal Exam: deferred Back/Spine/Pelvis: Cervical Spine: cervical ROM normal Skin: General skin exam: normal color Lesions: no lesions Rashes: no rashes Trauma: no lacerations or abrasions Wounds: no wounds Hair: normal Nails: normal Neuro: General: oriented to person, oriented to place, oriented to time and patient oriented x3 Cranial nerves: Yes Equal, round and reactive pupils present and Yes Normal hearing present Cognition (Neuro): normal cognition Speech: normal speech Motor exam (neuro): 5/5 motor strength present throughout Sensory Exam: normal sensation Extrem: General: normal to inspection Right upper extremity: normal to inspect
--- NOTE | 2022-06-19 11:52 | HOMEO2EVAL ---
Evaluation was performed at [facility] Home Oxygen Evaluation RC: Home Oxygen (O2) Evaluation Start: 06/19/22 10:57 Freq: ONCE Status: Active Protocol: RPE Activity Type Activity Date Activity User E-sign Co-sign Detail Recorded Client Recorded Date Recorded By Document 06/19/22 11:35 JESSICA [id number] 06/19/22 11:52 JESSICA Document 06/19/22 11:40 JESSICA [id number] 06/19/22 11:52 JESSICA Document 06/19/22 11:45 JESSICA [id number] 06/19/22 11:52 JESSICA 06/19/22 06/19/22 06/19/22 11:35 11:40 11:45 Home O2 Evaluation [Oxygen] -Test Phase Resting Exercise Resting -Oxygen Delivery Room Air Room Air Room Air [Pulse Oximetry] -Pulse Oximetry (90-100 %) 96 94 95 [Pulse Rate] -Pulse Rate (60-100 beats/min) 96 118 H 102 H [Comments] -Home Oxygen Evaluation Comments no home o2 needed [Charges] -Treatment Charges O2 Evaluation - Inpatient
--- NOTE | 2022-06-19 11:52 | PCRCNOTE ---
Home o2 eval done. no home o2 needed.
== END 2022-06-19 13:00 | disposition home or self-care (01) | DRG 194 ==
LOC: ANHED 14:19 → ANHIMU 14:25 → ANH2MED 06-17 22:39
PROVIDERS: Nurse Practitioner; Physician Assistant; Admitting Provider Family Medicine; PCP Physician Assistant; Visit Provider Chiropractor
DX: J10.1 Influenza due to other identified influenza virus with other respiratory manifestations (principal); J44.1 Chronic obstructive pulmonary disease with (acute) exacerbation; F17.210 Nicotine dependence, cigarettes, uncomplicated; F32.A Depression, unspecified; F41.9 Anxiety disorder, unspecified; Z20.822 Contact with and (suspected) exposure to COVID-19
CPT/HCPCS: 36415; 36600; 71046; 80053; 82375; 82805; 83050; 83605; 83735; 84484; 85025; 85610; 85730; 86308; 87637; 87651; 93005; 94002; 94618; 94640; 96374; 96375; 99285; A9270; J1650; J2060; J2930; J7040; J7512

== ENCOUNTER 2022-06-24 10:01 | Emergency (ER) | payer OTHER, SELFPAY ==
--- NOTE | ~2022-06-24 | XR_ITS ---
XR chest 2V 06/24/2022 10:26 Indication: Cough with shortness of breath Procedure: 2 view chest Comparison: 2 view chest Findings: There is emphysema. There is scarring in the right upper lung and left lower lung. There is bilateral calcified granulomas. No acute focal pneumonia, edema or effusion. No acute osseous abnorm ality. No pneumothorax. Prominent left nipple shadow. Impression: 1: No acute cardiopulmonary disease. 2: Emphysema. Reviewed, dictated and finalized at location A. [facility] [employer] Impression: 1: No acute cardiopulmonary disease. 2: Emphysema.
[2022-06-24 10:17] VITALS: BP 102/59; PULSE 112; RESP 20; TEMP 36.1; O2SAT 97
--- NOTE | 2022-06-24 10:17 | ED.URI ---
HPI - URI/Sore Throat General Chief Complaint: Upper Respiratory Infection Stated Complaint: cough Time Seen by Provider: 06/24/22 10:17 Source: patient Mode of arrival: ambulatory Limitations: no limitations History of Present Illness HPI Narrative: 61-year-old female With history of COPD presents with complaint of continued shortness of breath, coughing. patient was admitted to hospital a week ago for influenza. Did not get her influenza vaccine. States that she was given prednisone prescription for 5 days was only given 5 tablets and not 10. Did not call the pharmacy to discuss wrong script. 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 Due to shortness of breath does not feel that she is able to go back to work. Afebrile. Able to speak in full sentences. All systems reviewed and negative except as noted above. Related Data Home Medications Medication Instructions Recorded Confirmed duloxetine 60 mg capsule,delayed 60 mg PO BID 06/15/19 06/24/22 release budesonide-formoterol HFA 160 2 inh inhalation DAILY 10/16/21 06/24/22 mcg-4.5 mcg/actuation aerosol inhaler (Symbicort) albuterol sulfate 90 mcg/actuation 2 puff inhalation BID PRN 06/24/22 06/24/22 aerosol inhaler Shortness Of Breath Or Wheezing aripiprazole 2 mg tablet 2 mg PO DAILY 06/24/22 06/24/22 Allergies Allergy/AdvReac Type Severity Reaction Status Date / Time No Known Allergies Allergy Verified 06/24/22 10:06 Review of Systems Review of Systems: CONSTITUTIONAL: Denies fever, chills, or sweats. reports fatigue. EYES: Denies visual changes, redness, or discharge. ENT: Denies rhinorrhea, congestion, sore throat, or otalgia. CARDIOVASCULAR: Denies chest pain, palpitations, or edema. RESPIRATORY: Reports cough and dyspnea on exertion. GASTROINTESTINAL: Denies abdominal pain, nausea, vomiting, or diarrhea. GENITOURINARY: Denies dysuria or hematuria. SKIN: Denies rash or itching. MUSCULOSKELETAL: Denies back pain, joint pain, or myalgia. NEUROLOGIC: Denies headache, numbness, or weakness. PSYCHIATRIC: Denies anxiety or depression. All other systems reviewed are negative, except as documented in HPI. [facility] Past Medical History Medical History (Updated 06/24/22 @ 11:22 by Marlee Seth NP) Depression History of COPD Tobacco abuse Surgical History Surgical History No pertinent past surgical history Family History Family History Mother Family history non-contributory Father Smoker Bone cancer Social History Social History (Updated 06/16/22 @ 21:34 by Maryann Shah NP) Social History: The patient had been smoking at least 10 cigarettes a day. She stated she has not had a cigarette since this past . She has 2 children. 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 The patient is but still remains friends with her ex-. she denies any alcohol marijuana or illicit drugs. She has no durable power ip attorney for healthcare. Code status full code Smoking packs per day: 0.5 Smoking cigarettes per day: 10.0 Years smoked: 40 Smoking pack-years: 20.00 Smoking status: Current every day smoker Substance use: never Lack of Transportation: No Lack of Food: Never True Current Housing: I Have Housing Concerned About Future Housing: No Difficulty Paying Gas/Electric Bills: No Difficulty Paying for Meds: No Currently Unemployed: No Education: High School Diploma/GED Difficulty w/ Childcare or Family Care: No Gender identity (if verbalized by the patient): Female Spiritual care concerns: No Comments At time of signature, agree with nursing past medical, surgical, social and family history. There is no relevant family history pertinent to the presenting complaint. Exam Narrative: GENERAL: This is a well-nourished
[2022-06-24] MEDS: methylPREDNISolone SOD SUCC 125 MG VIAL IM (10:47)
[2022-06-24] MEDS: ALBUTEROL SULFATE NEB 2.5 MG/3 ML INH INHALATION (10:47)
[2022-06-24 10:51] VITALS: PULSE 112; RESP 20; O2SAT 97
[2022-06-24 11:20] VITALS: PULSE 115; RESP 20; O2SAT 97
== END 2022-06-24 11:24 | disposition home or self-care (01) ==
PROVIDERS: Emergency Provider Nurse Practitioner Family
DX: J44.1 Chronic obstructive pulmonary disease with (acute) exacerbation (principal); F17.210 Nicotine dependence, cigarettes, uncomplicated
CPT/HCPCS: 71046; 96372; 99213; G0463; J2930

== ENCOUNTER 2022-07-15 11:40 | Emergency (ER) | payer OTHER, SELFPAY ==
[2022-07-15 12:11] VITALS: BP 126/85; PULSE 99; RESP 16; TEMP 36.4; O2SAT 100
--- NOTE | 2022-07-15 13:09 | ED.URI ---
HPI - URI/Sore Throat General Chief Complaint: Shortness of Breath/Dyspnea Stated Complaint: Shortness of Breath Time Seen by Provider: 07/15/22 13:09 Source: patient, RN notes reviewed and old records reviewed Mode of arrival: ambulatory Limitations: no limitations History of Present Illness HPI Narrative: 61-year-old female presents to the [facility] with continued shortness of breath. Was evaluated on June 24 in the [facility] post hospital admission visit for influenza. Patient states the last time she smoked was when she had influenza and was in the hospital. patient also requesting refill on her Cymbalta and a primary care provider. Related Data Home Medications Medication Instructions Recorded Confirmed duloxetine 60 mg capsule,delayed 60 mg PO BID 06/15/19 07/15/22 release albuterol sulfate 90 mcg/actuation 2 puff inhalation BID PRN 06/24/22 07/15/22 aerosol inhaler Shortness Of Breath Or Wheezing Allergies Allergy/AdvReac Type Severity Reaction Status Date / Time No Known Allergies Allergy Verified 07/15/22 13:34 Review of Systems Review of Systems: All systems reviewed & are unremarkable except as noted in HPI and below Constitutional: Constitutional: Reports no additional constitutional complaints Eyes: Eyes: Reports no additional eye complaints ENT: Reports system reviewed and no additional complaints, except as documented Cardiovascular: Cardiovascular: Reports no additional cardiovascular complaints, Denies chest pain and Denies dyspnea Respiratory: Respiratory: Reports as per HPI, Denies chest congestion, Reports cough and Reports dyspnea Gastrointestinal: Gastrointestinal: Reports no additional gastrointestinal complaints, Denies abdominal pain, Denies nausea and Denies vomiting Musculoskeletal: Musculoskeletal: Reports no additional musculoskeletal complaints Integumentary/Breasts: Skin/Breast: Reports system reviewed and no additional complaints, except as docu Neurologic: Reports system reviewed and no additional complaints, except as documented Psychiatric: Psychiatric: Reports no additional psychiatric complaints Allergic/Immunologic: Allergic/Immunologic: Reports no additional allergic/immunologic complaints PMFSH Past Medical History Medical History Depression History of COPD Tobacco abuse Surgical History Surgical History No pertinent past surgical history Family History Family History Mother Family history non-contributory Father Smoker Bone cancer Social History Social History Social History: The patient had been smoking at least 10 cigarettes a day. She stated she has not had a cigarette since this past . She has 2 children. 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 The patient is but still remains friends with her ex-. she denies any alcohol marijuana or illicit drugs. She has no durable power reel and rewinder operator for healthcare. Code status full code Smoking packs per day: 0.5 Smoking cigarettes per day: 10.0 Years smoked: 40 Smoking pack-years: 20.00 Smoking status: Current every day smoker Substance use: never Lack of Transportation: No Lack of Food: Never True Current Housing: I Have Housing Concerned About Future Housing: No Difficulty Paying Gas/Electric Bills: No Difficulty Paying for Meds: No Currently Unemployed: No Education: High School Diploma/GED Difficulty w/ Childcare or Family Care: No Gender identity (if verbalized by the patient): Female Spiritual care concerns: No Comments At the time of my signature, I reviewed and agree with the nursing past medical, surgical, social, and family history. There is no relevant family history p
== END 2022-07-15 13:56 | disposition home or self-care (01) ==
PROVIDERS: Emergency Provider Nurse Practitioner
DX: J44.9 Chronic obstructive pulmonary disease, unspecified (principal); F17.210 Nicotine dependence, cigarettes, uncomplicated
CPT/HCPCS: 99213; G0463